=== PATIENT | female | born 1995 | race Caucasian/White ===

== ENCOUNTER 2017-01-21 07:09 | Emergency (ER) | payer MEDICAID, OTHER ==
[~2017-01-21] VITALS: Ht 162.6 cm; Wt 69.5 kg
[~2017-01-21 07:09] MED LIST: ONDA4TAB35 PO; PNV1TABL43 PO; TRAM50TA2 PO
[2017-01-21 07:13] VITALS: Ht 162.6 cm; Wt 69.5 kg
[2017-01-21] MEDS ORDERED: FAMOTIDINE 20 MG TAB PO STA (08:05)
[2017-01-21] MEDS ORDERED: SOD CHLORIDE 0.9% 500 ML IV STA (08:05)
[2017-01-21] MEDS ORDERED: LIDOCAINE/MYLANTA 40 ML BTL PO ONE (08:30)
[2017-01-21] MEDS ORDERED: PANTOPRAZOLE 40 MG INJ IV ONE (08:30)
--- NOTE | 2017-01-21 08:47 | RADRPT ---
PROCEDURE: XR Chest. CLINICAL INDICATION: Abdominal pain TECHNIQUE: Single frontal view of the chest was obtained COMPARISON: None FINDINGS: The heart and mediastinum are within normal limits. The lungs are clear. There is no pleural effusion or pneumothorax. RPTAT: AA IMPRESSION: No acute disease. .Derek Singer MD, Date Time Electronically viewed and signed by .Derek Singer MD, on 01/21/2017 08:47 .S/
[2017-01-21 08:53] LABS: ADD SCAN DIFF NO
[2017-01-21 08:56] LABS: BASOPHILS % 0.2 % (0.0-2.0); EOSINOPHILS # 0.1 10^3/ul (0.0-0.5); EOSINOPHILS % 0.9 % (0.0-7.0); HEMATOCRIT 38.8 % (37.0-47.0); HEMOGLOBIN 12.9 g/dl (12.0-16.0); LYMPHOCYTES # 1.4 10^3/ul (0.8-2.9); LYMPHOCYTES % 15.6 % (15.0-51.0); MEAN CORPUSCULAR HEMOGLOBIN 29.4 pg (29.0-33.0); MEAN CORPUSCULAR HGB CONC 33.2 g/dl (32.0-37.0); MEAN CORPUSCULAR VOLUME 88.4 fl (82.0-101.0); MEAN PLATELET VOLUME 8.8 fl (7.4-10.4); MONOCYTE # 0.3 10^3/ul (0.3-0.9); MONOCYTES % 3.4 % (0.0-11.0); NEUTROPHIL # 7.1 10^3/ul (1.6-7.5); NEUTROPHILS % 79.6 % (39.0-77.0); PLATELET COUNT 301 10^3/UL (140-415); RED BLOOD COUNT 4.39 10^6/ul (4.20-5.40); RED CELL DISTRIBUTION WIDTH 12.1 % (11.5-14.5); WHITE BLOOD COUNT 8.9 10^3/ul (4.8-10.8)
[2017-01-21 09:04] LABS: ADD UMIC NO; URINE BILIRUBIN (Dip) NEGATIVE (NEGATIVE); URINE BLOOD (Dip) NEGATIVE (NEGATIVE); URINE COLOR YELLOW (YELLOW); URINE GLUCOSE (Dip) NEGATIVE (NEGATIVE); URINE KETONES (Dip) NEGATIVE (NEGATIVE); URINE LEUKOCYTE ESTERASE (Dip) NEGATIVE (NEGATIVE); URINE NITRITE (Dip) NEGATIVE (NEGATIVE); URINE TOTAL PROTEIN (Dip) NEGATIVE (NEGATIVE); URINE UROBILINOGEN (Dip) 0.2 E.U./dL (0.1-1.0)
[2017-01-21 09:10] LABS: ALBUMIN 4.7 g/dl (3.3-4.9)
[2017-01-21 09:11] LABS: POTASSIUM 4.5 mmol/L (3.5-5.1)
[2017-01-21 09:13] LABS: ALBUMIN/GLOBULIN RATIO 1.51; BILIRUBIN,INDIRECT 0.3 mg/dl (0-1.1); BILIRUBIN,TOTAL 0.3 mg/dl (0.2-1.3); CREATININE 0.48 mg/dl (0.44-1.00); TOTAL PROTEIN 7.8 g/dl (6.1-8.1)
[2017-01-21 09:14] LABS: CALCIUM 9.7 mg/dl (8.4-10.2)
[2017-01-21] MEDS ORDERED: OMEP20CA16 PO (10:00)
[2017-01-21] MEDS ORDERED: ONDA4TAB14 PO (10:00)
[2017-01-21 10:05] LABS: PROTIME 13.2 Sec (12.2-14.2)
[2017-01-21 10:06] LABS: PARTIAL THROMBOPLASTIN TIME 27.6 Sec (25.0-35.0)
[2017-01-21 10:18] VITALS: BP 104/70; PULSE 64; RESP 18; TEMP 98.3
--- NOTE | 2017-01-21 15:33 | ERD ---
ER Documentation Chief Complaint Date/Time DATE: 01/21/17 TIME: 15:29 Chief Complaint HAD 2 EPISODES OF HEMATEMESIS HPI This patient is a 21-year-old female with history of gastritis and cholecystitis with successful cholecystectomy presenting to the emergency department with one episode of hematemesis which occurred today. Additionally the patient had 2 episodes of vomiting yesterday and one episode of vomiting today. The patient reports streaks of blood in the vomit today. There was not a significant amount of blood. Additionally the patient has had cough for 1 week and mild weakness that she noticed while at work. Patient is taken no medication for relief of symptoms. The patient denies fevers, chills, diarrhea , abdominal pain, alcohol abuse, or other symptoms at this time. ROS All systems reviewed and are negative except as per history of present illness. Medications Home Meds Active Scripts Ondansetron (Ondansetron Odt) 4 Mg Tab.rapdis, 4 MG PO Q6H Y for NAUSEA AND/OR VOMITING, #10 TAB Prov:CHRISTINA ALVAREZ PA-C 01/21/17 Omeprazole* (Omeprazole*) 20 Mg Capsule.dr, 20 MG PO DAILY, #30 CAP Prov:CHRISTINA ALVAREZ PA-C 01/21/17 Ondansetron Hcl* (Zofran* ODT) 4 mg -ODT Tab.disper, 4 MG PO Q6 Y for NAUSEA AND /OR VOMITING, #10 TAB Prov:CHRISTINA LANDAVERDE 07/17/15 Tramadol HCl (Tramadol HCl) 50 Mg Tab, 50 MG PO Q4 Y for PAIN, #20 TAB Prov:CHRISTINA LANDAVERDE 07/17/15 Reported Medications Vit/Fe Fumarate/Fa* ( Vitamin Tablet*) 1 Tab Tablet, 1 TAB PO DAILY, TAB 05/21/15 Allergies Allergies: Coded Allergies: No Known Allergy (Unverified , 07/25/15) PMhx/Soc Medical and Surgical Hx: pt denies Medical Hx, pt denies Surgical Hx History of Surgery: No Anesthesia Reaction: No Hx Neurological Disorder: No Hx Respiratory Disorders: No Hx Cardiac Disorders: No Hx Psychiatric Problems: No Hx Miscellaneous Medical Probl: Yes (SALMONELLA) Hx Alcohol Use: No Hx Substance Use: No Hx Tobacco Use: Yes (QUIT A YR AGO) Smoking Status: Former smoker FmHx Noncontributory for chief complaint Physical Exam Vitals Vital Signs Date Time Temp Pulse Resp B/P Pulse Ox O2 Delivery O2 Flow Rate FiO2 01/21/17 10:18 98.3 64 18 104/70 99 01/21/17 07:13 97.9 77 18 110/66 99 Physical Exam Const: The patient is resting comfortably in no acute distress. Head: Atraumatic Eyes: Normal Conjunctiva ENT: Normal External Ears, Nose and Mouth. Neck: Full range of motion..~ No meningismus. Resp: Clear to auscultation bilaterally Cardio: Regular rate and rhythm, no murmurs Abd: Soft, non tender, non distended. Normal bowel sounds Skin: No petechiae or rashes Back: No midline or flank tenderness Ext: No cyanosis, or edema Neur: Awake and alert Psych: Normal Mood and Affect Result Diagram: 01/21/17 0837 01/21/17 0837 Results 24 hrs Laboratory Tests Test 01/21/17 08:05 01/21/17 08:37 Urine Color YELLOW Urine Clarity CLEAR Urine pH 6.0 Urine Specific [place] 1.025 Urine Ketones NEGATIVE Urine Nitrite NEGATIVE Urine Bilirubin NEGATIVE Urine Urobilinogen 0.2 E.U./dL Urine Leukocyte Esterase NEGATIVE Urine Hemoglobin NEGATIVE Urine Glucose NEGATIVE% Urine Total Protein NEGATIVE White Blood Count 8.910^3/ul Red Blood Count 4.3910^6/ul Hemoglobin 12.9g/dl Hematocrit 38.8% Mean Corpuscular Volume 88.4fl Mean Corpuscular Hemoglobin 29.4pg Mean Corpuscular Hemoglobin Concent 33.2g/dl Red Cell Distribution Width 12.1% Platelet Count 47513^3/UL Mean Platelet Volume 8.8fl Neutrophils % 79.6% Lymphocytes % 15.6% Monocytes % 3.4% Eosinophils % 0.9% Basophils % 0.2% Nucleated Red Blood Cells % 0.0/100WBC Neutrophils # 7.110^3/ul Lymphocytes # 1.410^3/ul Monocytes # 0.310^3/ul Eosinophils # 0.110^3/ul Basophils # 0.010^3/ul Nucleated Red Blood Cells # 0.010^3/ul Prothrombin Time 13.2Sec Prothrombin Time Ratio 1.0 INR International Normalized Ratio 1.00 Activated Partial Thromboplast Time 27.6Sec Sodium Level 140mmol/L Potassium Level 4.5mmol/L Chloride Level 100mmol/L Carbon Dioxide Level 28mmol/L Anion Gap 17 Blood Urea Nitrogen 8mg/dl Creatinine 0.48mg/dl Glucose Level 96mg/dl Calcium Level 9.7mg/dl Total Bilirubin 0.3mg/dl Direct Bilirubin 0.00mg/dl Indirect Bilirubin 0.3mg/dl Aspartate Amino Transf (AST/SGOT) 22IU/L Alanine Aminotransferase (ALT/SGPT) 31IU/L Alkaline Phosphatase 82IU/L Total Protein 7.8g/dl Albumin 4.7g/dl Globulin 3.10g/dl Albumin/Globulin Ratio 1.51 Lipase 54U/L Current Medications Medications (Trade) Dose Ordered Sig/Sandra Route PRN Reason Start Time Stop Time Status Last Admin Dose Admin Sodium Chloride (NS) 500 ml @ 500 mls/hr Q1H STAT IV 01/21/17 08:05 01/21/17 09:04 DC 01/21/17 08:29 Famotidine (Pepcid) 20 mg ONCE STAT PO 01/21/17 08:05 01/21/17 08:14 DC Miscellaneous Medication (Gi Cocktail (2)) 40 ml ONCE ONCE PO 01/21/17 08:30 01/21/17 08:32 DC 01/21/17 08:29 Pantoprazole (Protonix Iv) 40 mg ONCE ONCE IV 01/21/17 08:30 01/21/17 08:32 DC 01/21/17 08:29 Procedures/[facility] EMERGENCY DEPARTMENT COURSE / MEDICAL DECISION MAKING: This is a 21-year-old female who comes to the emergency room secondary to complaints of cough and hematemesis The patient was given IV Protonix, IV Pepcid, n.p.o. GI cocktail in the department. On re-evaluation, the patient was feeling improved. Lab results reviewed and showed no signs of leukocytosis, anemia, or other significant abnormalities. Urinalysis was not concerning for infection or proteinuria. Radiology: PROCEDURE: XR Chest. CLINICAL INDICATION: Abdominal pain TECHNIQUE: Single frontal view of the chest was obtained COMPARISON: None FINDINGS: The heart and mediastinum are within normal limits. The lungs are clear. There is no pleural effusion or pneumothorax. RPTAT: AA IMPRESSION: No acute disease. .Derek Singer MD, MD Date Time Electronically viewed and signed by .Derek Singer MD, MD on 01/21/2017 08: 47 .S/ CC: CHRISTINA ALVAREZ PA-C The primary diagnosis is epigastric pain. Secondary diagnosis is GERD. Other diagnosis is hematemesis. I have low suspicion for Krista-Espinoza syndrome, esophageal varices, esophagitis , septicemia, or other emergent conditions at this time. Discharge: I have discussed the lab results and diagnostic findings with the patient and answered any questions or concerns. The patient was discharged with a prescription for Zofran and omeprazole. The patient was advised to followup with their PMD in 1-2 days and to return to the Emergency Department if there are any new or worsening symptoms. The patient understood and agreed with the diagnosis, treatment and plan. The patient is stable for discharge at this time. Departure Diagnosis: Primary Impression: Epigastric pain Additional Impressions: GERD (gastroesophageal reflux disease) Hematemesis Condition: Fair Patient Instructions: Gerd (Adult), Epigastric Pain (Uncertain Cause) Referrals: ALLEGRA LYNCH SALEEM A MD GULSRUD, PAUL O MD JOGANI, PIYUSH K MD [facility] () Usted se hammond hecho un examen mdico de control que le indica que no est en patricia condicin que requiera tratamiento urgente en el Departamento de Emergencia. Un estudio ms profundo y el tratamiento de kenyon condicin pueden esperar sin ningn riesgo hasta que usted sea atendida/o en el consultorio de kenyon mdico o patricia cl patrick. Es responsabilidad suya arreglar patricia lacho para el seguimiento del jose d. MANEJO DE CONDICIONES NO URGENTES EN EL FUTURO 1) Si usted tiene un mdico de atencin primaria: Usted debera llamar a kenyon mdico de atencin primaria antes de venir al departamento de emergencia. Despus de las horas de consultorio, kenyon doctor o kenyon asociado/a est disponible por telfono. El mdico o enfermero de melody en el servicio telefnico puede asesorarle por fredis medio para atender el problema, o jose d contrario se puede programar patricia lacho. 2) Si usted no tiene un mdico de atencin primaria: Llame al mdico o clnica de referencia que aparece abajo ha las horas de consultorio para hacer patricia lacho para que le vean. CLINICAS: [place] [id number] [phone] [facility] [phone] [facility] [id number] [place] [id number] [phone] [place] [id number] [phone] [facility] [phone] [address] Additional Instructions: No mas mejor en 2-3 sotomayor, regresar. Mas peor en 24 horas, regresear rapidamente. Ir a doctor primario in 5-7 sotomayor. Usar instrucciones cuando felipe medicamento. CHRISTINA ALVAREZ PA-C Jan 21, 2017 15:33
== END 2017-01-21 10:19 | disposition home or self-care (01) ==
LOC: FTE 07:09
DX: R10.13 Epigastric pain (principal); K21.9 Gastro-esophageal reflux disease without esophagitis; Z87.891 Personal history of nicotine dependence
CPT/HCPCS: 36415; 71010; 80053; 81003; 83690; 85025; 85610; 85730; 86900; 86901; 96374; C9113; J7040; Z7502; Z7610